=== PATIENT | male | born 2000 | race Caucasian/White ===

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

== ENCOUNTER 2019-10-24 00:55 | Emergency (ER) | payer MEDICAID ==
[~2019-10-24] VITALS: Ht 195.6 cm; Wt 70.0 kg
[~2019-10-24 00:55] MED LIST changes: +BENZ1TAB7; -DIVA-81 PO; +DIVA250T8; +DIVA500T9; -GUAN3TAB PO; +GUAN4TAB3; +LAMO200T10; +LORA-269 PO; -LORA1TAB PO; +PALI6TAB6
[2019-10-24] MEDS ORDERED: LIDOcaine 1% 30ml preserv. free vial IJ ONE (01:10)
[2019-10-24] MEDS ORDERED: acetaminophen 325mg tablet PO ONE (01:55)
[2019-10-24 02:13] VITALS: BP 117/78
== END 2019-10-24 02:15 | disposition home or self-care (01) ==
LOC: ER 00:56
DX: S61.411A Laceration without foreign body of right hand, initial encounter (principal); F41.9 Anxiety disorder, unspecified; F32.9 Major depressive disorder, single episode, unspecified; F12.90 Cannabis use, unspecified, uncomplicated; Z88.0 Allergy status to penicillin; Z79.899 Other long term (current) drug therapy; W26.0XXA Contact with knife, initial encounter; Y93.89 Activity, other specified; Y92.89 Other specified places as the place of occurrence of the external cause; Y99.8 Other external cause status
CPT/HCPCS: 12001; 99282

== ENCOUNTER 2020-06-18 14:32 | Emergency (ER) | payer MEDICARE, MEDICAID | END 2020-06-18 15:39 | disposition left against medical advice (07) | LOC: ER 14:33 | DX: R68.84 Jaw pain (principal); Z53.21 Procedure and treatment not carried out due to patient leaving prior to being seen by health care provider ==